=== PATIENT | female | born 1980 | race African-American/Black ===

== ENCOUNTER 2017-02-15 07:34 | Emergency (ER) | payer BC, MEDICAID, OTHER ==
[2017-02-15 08:23] LABS: ABSOLUTE BASOPHILS # (AUTO) 0.1 10^3/uL (0.0-0.2); ABSOLUTE EOSINOPHILS # (AUTO) 0.1 10^3/uL (0.0-0.6); ABSOLUTE LYMPHOCYTES (AUTO) 2.6 10^3/uL (0.5-4.7); ABSOLUTE MONOCYTES (AUTO) 0.7 10^3/uL (0.1-1.4); ABSOLUTE NEUT (AUTO) 4.7 10^3/uL (1.7-8.2); BASOPHILS % (AUTO) 1.3 % (0-2); EOSINOPHILS % (AUTO) 1.7 % (0-6); HEMATOCRIT 42.3 % (36.0-47.0); HEMOGLOBIN 14.3 g/dL (12.0-15.5); HGB HCT DIFFERENCE 0.6; LYMPHOCYTES % (AUTO) 31.7 % (13-45); MEAN CORPUSCULAR HEMOGLOBIN 29.4 pg (27.0-33.4); MEAN CORPUSCULAR HGB CONC 33.8 g/dL (32.0-36.0); MEAN CORPUSCULAR VOLUME 87 fl (80-97); MONOCYTES % (AUTO) 8.4 % (3-13); RED BLOOD COUNT 4.88 10^6/uL (3.72-5.28); SEGMENTED NEUTROPHILS % (AUTO) 56.9 % (42-78); WHITE BLOOD COUNT 8.3 10^3/uL (4.0-10.5)
[2017-02-15 08:33] LABS: APPEARANCE,URINE SLIGHTLY-CLOUDY; BILIRUBIN,URINE NEGATIVE (NEGATIVE); GLUCOSE, URINE NEGATIVE (NEGATIVE); KETONES,URINE NEGATIVE (NEGATIVE); LEUKOCYTE ESTERASE,URINE NEGATIVE (NEGATIVE); NITRITE,URINE NEGATIVE (NEGATIVE); PROTEIN,URINE NEGATIVE (NEGATIVE); URINE SPECIFIC GRAVITY 1.009; UROBILINOGEN,URINE NEGATIVE mg/dL (<2.0)
[2017-02-15 08:49] LABS: ALANINE AMINOTRANSFERASE 19 U/L (9-52); ALBUMIN 4.3 g/dL (3.5-5.0); ALKALINE PHOSPHATASE 54 U/L (38-126); ANION GAP 6 (5-19); ASPARTATE AMINO TRANSFERASE 26 U/L (14-36); BILIRUBIN,DIRECT 0.4 mg/dL (0.0-0.4); BILIRUBIN,TOTAL 0.6 mg/dL (0.2-1.3); BLOOD UREA NITROGEN 10 mg/dL (7-20); CALCIUM 9.2 mg/dL (8.4-10.2); CARBON DIOXIDE 28 mmol/L (22-30); CHLORIDE 106 mmol/L (98-107); CREATININE RESULT 0.81 mg/dL (0.52-1.25); GLUCOSE 89 mg/dL (75-110); LIPASE 73.2 U/L (23-300); POTASSIUM 3.8 mmol/L (3.6-5.0); SODIUM 140.2 mmol/L (137-145); TOTAL PROTEIN 7.6 g/dL (6.3-8.2)
[2017-02-15] MEDS ORDERED: MAG HYDROX/AL HYDROX/SIMETH SUSP 30 ML UDCUP PO ONE (08:50)
[2017-02-15] MEDS ORDERED: METOCLOPRAMIDE HCL ORAL SOLN 10 MG/10 ML UDCUP PO ONE (08:50)
[2017-02-15] MEDS ORDERED: LIDOCAINE 2% VISCOUS SOLN 20 ML UDCUP PO ONE (08:50)
[2017-02-15] MEDS ORDERED: FAMOTIDINE 20 MG TABLET PO ONE (09:58)
[2017-02-15] MEDS ORDERED: SUCRALFATE 1 GM TABLET PO ONE (09:58)
--- NOTE | 2017-02-15 10:00 | ER Document Report ---
ED General - General Chief Complaint: Sore Throat Stated Complaint: STOMACH PAIN Time Seen by Provider: 02/15/17 07:56 Mode of Arrival: Ambulatory Information source: Patient Notes: Patient is a 36-year-old female who presents to the ER today for abdominal pain in the middle of her abdomen radiating up into her throat since this morning. Patient has a history of acid reflux and takes omeprazole daily for it. She denies any fever, chills, nausea, vomiting, diarrhea, dysuria, cough or other symptoms. TRAVEL OUTSIDE OF THE [place] IN LAST 30 DAYS: No - Related Data Allergies/Adverse Reactions: No Known Allergies Allergy (Verified 02/15/17 07:45) Past Medical History - General Information source: Patient - Social History Smoking Status: Never Smoker Chew tobacco use (# tins/day): No Frequency of alcohol use: None Drug Abuse: None Family History: Reviewed & Not Pertinent Patient has suicidal ideation: No Patient has homicidal ideation: No - Past Medical History Cardiac Medical History: Denies: Hx Coronary Artery Disease, Hx Heart Attack, Hx Hypertension Pulmonary Medical History: Denies: Hx Asthma, Hx Bronchitis, Hx COPD, Hx Pneumonia Neurological Medical History: Denies: Hx Cerebrovascular Accident, Hx Seizures Renal/ Medical History: Reports: Hx Ovarian Cysts. Denies: Hx Peritoneal Dialysis GI Medical History: Reports: Hx Gastroesophageal Reflux Disease Musculoskeltal Medical History: Denies Hx Arthritis Past Surgical History: Reports: Hx Section. Denies: Hx Hysterectomy - Immunizations Hx Diphtheria, Pertussis, Tetanus Vaccination: Yes Review of Systems - Review of Systems Constitutional: No symptoms reported EENT: See HPI Cardiovascular: No symptoms reported Respiratory: No symptoms reported Gastrointestinal: See HPI Genitourinary: No symptoms reported Female Genitourinary: No symptoms reported Musculoskeletal: No symptoms reported Skin: No symptoms reported Hematologic/Lymphatic: No symptoms reported Neurological/Psychological: No symptoms reported Physical Exam - Vital signs Vitals: Temp Pulse Resp BP Pulse Ox 98.5 F 75 16 132/72 H 100 02/15/17 07:45 02/15/17 07:45 02/15/17 07:45 02/15/17 07:45 02/15/17 07:45 - Notes Notes: PHYSICAL EXAMINATION: GENERAL: Appears uncomfortable, but in no acute distress. HEAD: Atraumatic, normocephalic. EYES: Pupils equal round and reactive to light, extraocular movements intact, sclera anicteric, conjunctiva are normal. ENT: ear canals without erythema or foreign body, TMs pearly monte with good bony landmarks, nares patent, oropharynx clear without exudates. Moist mucous membranes. NECK: Normal range of motion, supple without lymphadenopathy LUNGS: CTAB and equal. No wheezes rales or rhonchi. HEART: Regular rate and rhythm without murmurs ABDOMEN: Soft, epigastric tenderness. No guarding, no rebound BACK: no vertebral tenderness, normal ROM GI/: no CVA tenderness EXTREMITIES: Normal range of motion, no pitting edema. No cyanosis. NEUROLOGICAL: Cranial nerves grossly intact. Normal sensory/motor exams. PSYCH: Normal mood, normal affect. SKIN: Warm, Dry, normal turgor, no rashes or lesions noted Course - Re-evaluation Re-evalutation: 02/15/17 10:25 Patient feels better after GI cocktail, lab work today is unremarkable including normal white blood cell count, urinalysis and negative test. - Vital Signs Vital signs: Temp Pulse Resp BP Pulse Ox 98.5 F 75 16 132/72 H 100 02/15/17 07:45 02/15/17 07:45 02/15/17 07:45 02/15/17 07:45 02/15/17 07:45 - Laboratory Result Diagrams: 02/15/17 08:10 02/15/17 08:10 Discharge - Discharge Clinical Impression: Abdominal pain Qualifiers: Abdominal location: epigastric Qualified Code(s): R10.13 - Epigastric pain Condition: Stable Disposition: HOME, SELF-CARE Additional Instructions: Return immediately for any new or worsening symptoms. Follow up with primary care provider, call tomorrow to make followup appointment. Prescriptions: Sucralfate [Carafate 1 gm Tablet] 1 gm PO ACHS #40 tablet Referrals: CHERRY BAUMANN MD [Primary Care Provider] - Follow up as needed
[2017-02-15 10:43] VITALS: BP 168/70
== END 2017-02-15 10:10 | disposition home or self-care (01) ==
LOC: ER 07:34
DX: J02.9 Acute pharyngitis, unspecified (principal); R10.13 Epigastric pain; K21.9 Gastro-esophageal reflux disease without esophagitis
CPT/HCPCS: 99282; 36415; 87070; 87880; 83690; 84703; 85025; 80053; 81001; J3490

== ENCOUNTER 2017-04-08 03:21 | Emergency (ER) | payer BC ==
[2017-04-08] MEDS ORDERED: ASPIRIN 81 MG TABLET, CHEWABLE PO ONE (04:18)
[2017-04-08] MEDS ORDERED: ONDANSETRON 4 MG TAB.RAPDIS PO ONE (04:19)
[2017-04-08] MEDS ORDERED: SUCRALFATE 1 GM TABLET PO ONE (04:19)
[2017-04-08] MEDS ORDERED: FAMOTIDINE 20 MG TABLET PO ONE (04:19)
--- NOTE | 2017-04-08 04:21 | ER Document Report ---
ED Cardiac - General Chief Complaint: Chest Pain Stated Complaint: CHEST PAIN Time Seen by Provider: 04/08/17 04:12 Notes: Patient is a 36-year-old female who comes emergency department for chief complaint of chest pain. She states pain started around 8 PM, she states that it has continued throughout the night, she cannot sleep, it is worse when lying flat, it does not radiate. She denies nausea/vomiting, difficulty breathing, shortness of breath, fever, cough, injury. Past medical history of IBS and GERD , takes omeprazole. She denies smoking, frequent alcohol use, she denies personal or family history of CA, blood clot. She denies recent travel, surgery , lower extremity swelling. TRAVEL OUTSIDE OF THE [place] IN LAST 30 DAYS: No - Related Data Allergies/Adverse Reactions: No Known Allergies Allergy (Verified 02/15/17 07:45) Past Medical History - General Information source: Patient - Social History Smoking Status: Never Smoker Frequency of alcohol use: None Drug Abuse: None Lives with: Family Family History: Reviewed & Not Pertinent Patient has suicidal ideation: No Patient has homicidal ideation: No - Past Medical History Cardiac Medical History: Denies: Hx Coronary Artery Disease, Hx Heart Attack, Hx Hypertension Pulmonary Medical History: Denies: Hx Asthma, Hx Bronchitis, Hx COPD, Hx Pneumonia Neurological Medical History: Denies: Hx Cerebrovascular Accident, Hx Seizures Renal/ Medical History: Reports: Hx Ovarian Cysts. Denies: Hx Peritoneal Dialysis GI Medical History: Reports: Hx Gastroesophageal Reflux Disease Musculoskeltal Medical History: Denies Hx Arthritis Past Surgical History: Reports: Hx Section. Denies: Hx Hysterectomy - Immunizations Hx Diphtheria, Pertussis, Tetanus Vaccination: Yes Review of Systems - Review of Systems Constitutional: No symptoms reported EENT: No symptoms reported Cardiovascular: See HPI Respiratory: No symptoms reported Gastrointestinal: See HPI Genitourinary: No symptoms reported Female Genitourinary: No symptoms reported Musculoskeletal: No symptoms reported Skin: No symptoms reported Hematologic/Lymphatic: No symptoms reported Neurological/Psychological: No symptoms reported Physical Exam - Vital signs Vitals: Temp Pulse Resp BP Pulse Ox 98.1 F 84 18 132/69 H 100 04/08/17 03:36 04/08/17 03:36 04/08/17 03:36 04/08/17 03:36 04/08/17 03:36 Interpretation: Normal - General General appearance: Appears well, Alert In distress: None - HEENT Head: Normocephalic, Atraumatic Eyes: Normal Pupils: PERRL - Respiratory Respiratory status: No respiratory distress Chest status: Nontender. No: Tender Breath sounds: Normal. No: Decreased air movement, Wheezing Chest palpation: Normal - Cardiovascular Rhythm: Regular. No: Tachycardia Heart sounds: Normal auscultation, S1 appreciated, S2 appreciated Murmur: No - Abdominal Inspection: Normal Distension: No distension Bowel sounds: Normal Tenderness: Nontender. No: Tender, Guarding Organomegaly: No organomegaly - Back Back: Normal, Nontender. No: Tender - Extremities General upper extremity: Normal inspection, Nontender, Normal color, Normal ROM , Normal temperature General lower extremity: Normal inspection, Nontender, Normal color, Normal ROM , Normal temperature, Normal weight bearing. No: Sujey's sign - Neurological Neuro grossly intact: Yes Cognition: Normal Orientation: AAOx4 Ck Coma Scale Eye Opening: Spontaneous Ck Coma Scale Verbal: Oriented [place] Coma Scale Motor: Obeys Commands [place] Coma Scale Total: 15 Speech: Normal Motor strength normal: LUE, RUE, LLE, RLE Sensory: Normal - Psychological Associated symptoms: Normal affect, Normal mood - Skin Skin Temperature: Warm Skin Moisture: Dry Skin Color: Normal Course - Re-evaluation Re-evalutation: EKG sinus rhythm with no T-wave inversions or ST segment changes in consecutive leads. No acute ischemic abnormality. Chest x-ray unremarkable. CBC, chemistry, hCG unremarkable. Troponin negative. Symptoms started over 8 hours ago. Heart score of 0. Patient was given aspirin initially, because of symptoms and history suspicious with GI source most likely patient was given Carafate, Pepcid, Zofran. On reevaluation patient symptoms completely resolved. She states she feels great. She is asking to leave. On review of previous records patient has been seen here several times with similar presentation and resolution. She has not had an endoscopy, H. pylori testing, or any additional workup in regards to her symptoms. Discussed this with patient, will provide her with written recommendation, she does see primary care she states she will go to them first for this. Discussed return precautions in detail, patient states understanding and agreement. - Vital Signs Vital signs: Temp Pulse Resp BP Pulse Ox 98.1 F 84 18 124/70 100 04/08/17 03:36 04/08/17 03:36 04/08/17 05:01 04/08/17 05:01 04/08/17 05:01 - Laboratory Result Diagrams: 04/08/17 04:28 04/08/17 04:28 Laboratory results interpreted by me: 04/08/17 04:28 Chloride 109 H Discharge - Discharge Clinical Impression: Chest pain Qualifiers: Chest pain type: unspecified Qualified Code(s): R07.9 - Chest pain, unspecified Condition: Stable Disposition: HOME, SELF-CARE Additional Instructions: Your workup today is normal. Your symptoms and response to treatment are consistent with a gastrointestinal source of your symptoms. Because you have been seen for this several times and your symptoms continue to occur please follow-up with your primary care provider for additional management including H. pylori testing and endoscopy. Take the Carafate as prescribed, take Rolaids or Tums [id number] if needed, take acetaminophen for pain, avoid NSAIDs, caffeine, spicy food. Return to the emergency department for any concerning worsening symptoms including vomiting, black stools, return or worsening pain, shortness of breath , fever, or any other concerning symptoms. Prescriptions: Sucralfate [Carafate 1 gm Tablet] 1 gm PO QID #40 tablet Referrals: JOSH NGO MD [Primary Care Provider] - Follow up as needed
[2017-04-08 04:47] LABS: ABSOLUTE BASOPHILS # (AUTO) 0.1 10^3/uL (0.0-0.2); ABSOLUTE EOSINOPHILS # (AUTO) 0.1 10^3/uL (0.0-0.6); ABSOLUTE LYMPHOCYTES (AUTO) 1.4 10^3/uL (0.5-4.7); ABSOLUTE MONOCYTES (AUTO) 0.7 10^3/uL (0.1-1.4); ABSOLUTE NEUT (AUTO) 5.5 10^3/uL (1.7-8.2); EOSINOPHILS % (AUTO) 1.8 % (0-6); HEMATOCRIT 42.7 % (36.0-47.0); HEMOGLOBIN 14.4 g/dL (12.0-15.5); HGB HCT DIFFERENCE 0.5; MEAN CORPUSCULAR HEMOGLOBIN 29.1 pg (27.0-33.4); MEAN CORPUSCULAR HGB CONC 33.8 g/dL (32.0-36.0); MEAN CORPUSCULAR VOLUME 86 fl (80-97); MONOCYTES % (AUTO) 9.1 % (3-13); RED BLOOD COUNT 4.95 10^6/uL (3.72-5.28); RED CELL DISTRIBUTION WIDTH 13.3 % (11.5-14.0); SEGMENTED NEUTROPHILS % (AUTO) 70.1 % (42-78); WHITE BLOOD COUNT 7.9 10^3/uL (4.0-10.5)
[2017-04-08 05:05] LABS: ALANINE AMINOTRANSFERASE 27 U/L (9-52); ALBUMIN 4.1 g/dL (3.5-5.0); ALKALINE PHOSPHATASE 53 U/L (38-126); ANION GAP 9 (5-19); ASPARTATE AMINO TRANSFERASE 14 U/L (14-36); BILIRUBIN,DIRECT 0.2 mg/dL (0.0-0.4); BILIRUBIN,TOTAL 0.4 mg/dL (0.2-1.3); BLOOD UREA NITROGEN 12 mg/dL (7-20); CALCIUM 9.5 mg/dL (8.4-10.2); CARBON DIOXIDE 25 mmol/L (22-30); CHLORIDE 109 mmol/L (98-107); CREATINE KINASE 86 U/L (30-135); CREATININE RESULT 0.83 mg/dL (0.52-1.25); GLUCOSE 100 mg/dL (75-110); POTASSIUM 4.1 mmol/L (3.6-5.0); SODIUM 142.5 mmol/L (137-145); TOTAL PROTEIN 7.1 g/dL (6.3-8.2)
[2017-04-08 05:17] LABS: CREATINE KINASE MB 0.38 ng/mL (<4.55); TROPONIN I < 0.012 ng/mL
--- NOTE | 2017-04-08 05:39 | RADIOLOGY REPORT (SQ) ---
EXAM DESCRIPTION: CHEST SINGLE VIEW CLINICAL HISTORY: 36 years, Female, chest pain COMPARISON: None. NUMBER OF VIEWS: 1 TECHNIQUE: Routine portable AP chest radiograph protocol. LIMITATIONS: None. FINDINGS: Cardiac size and pulmonary vasculature are normal. Lungs are clear. No pleural effusions or pneumothorax on this single view. Bones appear intact on this single view. No free peritoneal gas. IMPRESSION: 1. Normal portable AP chest radiograph. 2010 [facility] [employer]- All Rights Reserved
[2017-04-08 05:48] VITALS: BP 124/70
--- NOTE | 2017-04-08 11:18 | EKG REPORT ---
SEVERITY:- NORMAL ECG - SINUS RHYTHM : Confirmed by: Lana Heredia MD 08-Apr-2017 11:17:10
== END 2017-04-08 05:47 | disposition home or self-care (01) ==
LOC: ER 03:21
DX: R07.9 Chest pain, unspecified (principal)
CPT/HCPCS: 93005; 99285; 36415; 82553; 82550; 84703; 85025; 80053; 84484; 71010; 93010; S0119

== ENCOUNTER 2017-04-10 18:12 | Emergency (ER) | payer BC ==
[2017-04-10 19:40] LABS: ABSOLUTE LYMPHOCYTES (AUTO) 2.4 10^3/uL (0.5-4.7); ABSOLUTE NEUT (AUTO) 7.1 10^3/uL (1.7-8.2); BASOPHILS % (AUTO) 0.4 % (0-2); EOSINOPHILS % (AUTO) 0.3 % (0-6); HEMATOCRIT 42.3 % (36.0-47.0); HEMOGLOBIN 14.5 g/dL (12.0-15.5); HGB HCT DIFFERENCE 1.2; LYMPHOCYTES % (AUTO) 22.7 % (13-45); MEAN CORPUSCULAR HEMOGLOBIN 29.5 pg (27.0-33.4); MEAN CORPUSCULAR HGB CONC 34.3 g/dL (32.0-36.0); MEAN CORPUSCULAR VOLUME 86 fl (80-97); MONOCYTES % (AUTO) 9.7 % (3-13); RED BLOOD COUNT 4.91 10^6/uL (3.72-5.28); RED CELL DISTRIBUTION WIDTH 13.5 % (11.5-14.0); SEGMENTED NEUTROPHILS % (AUTO) 66.9 % (42-78); WHITE BLOOD COUNT 10.7 10^3/uL (4.0-10.5)
[2017-04-10 19:43] LABS: AMORPHOUS SEDIMENT,URINE TRACE /HPF; APPEARANCE,URINE CLOUDY; BILIRUBIN,URINE NEGATIVE (NEGATIVE); GLUCOSE, URINE NEGATIVE (NEGATIVE); KETONES,URINE NEGATIVE (NEGATIVE); LEUKOCYTE ESTERASE,URINE NEGATIVE (NEGATIVE); NITRITE,URINE NEGATIVE (NEGATIVE); PROTEIN,URINE NEGATIVE (NEGATIVE); URINE SPECIFIC GRAVITY 1.013; UROBILINOGEN,URINE NEGATIVE mg/dL (<2.0)
[2017-04-10 19:49] LABS: URINE BARBITURATES SCREEN NEGATIVE; URINE METHADONE SCREEN NEGATIVE; URINE OPIATES LOW NEGATIVE; URINE PHENCYCLIDINE SCREEN NEGATIVE
[2017-04-10 19:51] LABS: ALANINE AMINOTRANSFERASE 24 U/L (9-52); ALBUMIN 4.3 g/dL (3.5-5.0); ALCOHOL < 10 mg/dL (NONE DETECTED); ALKALINE PHOSPHATASE 49 U/L (38-126); ANION GAP 12 (5-19); ASPARTATE AMINO TRANSFERASE 20 U/L (14-36); BILIRUBIN,DIRECT 0.4 mg/dL (0.0-0.4); BILIRUBIN,TOTAL 0.6 mg/dL (0.2-1.3); BLOOD UREA NITROGEN 7 mg/dL (7-20); CARBON DIOXIDE 25 mmol/L (22-30); CHLORIDE 107 mmol/L (98-107); CREATININE RESULT 0.81 mg/dL (0.52-1.25); GLUCOSE 98 mg/dL (75-110); LIPASE 51.1 U/L (23-300); POTASSIUM 4.1 mmol/L (3.6-5.0); SODIUM 144.2 mmol/L (137-145); TOTAL PROTEIN 7.4 g/dL (6.3-8.2)
--- NOTE | 2017-04-10 20:17 | RADIOLOGY REPORT (SQ) ---
EXAM DESCRIPTION: CHEST PA/LAT COMPLETED DATE/TIME: 04/10/2017 7:56 pm REASON FOR STUDY: Altered mental status COMPARISON: 2014 TECHNIQUE: Frontal and lateral radiographic views of the chest acquired. NUMBER OF VIEWS: Two view. LIMITATIONS: None. FINDINGS: LUNGS AND PLEURA: No opacities, masses or pneumothorax. No pleural effusion. MEDIASTINUM AND HILAR STRUCTURES: No masses or contour abnormalities. HEART AND VASCULAR STRUCTURES: Heart normal size. No evidence for failure. BONES: No acute findings. HARDWARE: None in the chest. OTHER: No other significant finding. IMPRESSION: NO SIGNIFICANT RADIOGRAPHIC FINDING IN THE CHEST. TECHNICAL DOCUMENTATION: JOB ID: [id number] 2012 [employer]- All Rights Reserved
--- NOTE | 2017-04-10 20:40 | ER Document Report ---
ED General - General Chief Complaint: Aphasia Stated Complaint: CONFUSION,NOT ACTING "NORMAL" Time Seen by Provider: 04/10/17 18:54 Notes: Patient had some unusual activity and behavior today. In her room with her today, is her son and her aunt. She drove her car about 3 blocks from home to go to the store to buy local bread around 11:00 today. Her car was found sitting in the middle of the street , and the patient through her keys away. Her son called her and they were eventually able to find her and take her to another relative's house where she went to sleep. Says she has not had any sleep for couple of days. Patient's aunt says that patient has been very stressed of late. 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 Patient was seen in this emergency department just a couple of days ago for chest pains and her workup was completely normal. TRAVEL OUTSIDE OF THE [place] IN LAST 30 DAYS: No - Related Data Allergies/Adverse Reactions: No Known Allergies Allergy (Verified 02/15/17 07:45) Past Medical History - Social History Smoking Status: Unknown if Ever Smoked Family History: Reviewed & Not Pertinent Renal/ Medical History: Reports: Hx Ovarian Cysts GI Medical History: Reports: Hx Gastroesophageal Reflux Disease Psychiatric Medical History: Reports: None Denies: Hx Bipolar Disorder Past Surgical History: Reports: Hx Section - Immunizations Hx Diphtheria, Pertussis, Tetanus Vaccination: Yes Review of Systems - Review of Systems Notes: REVIEW OF SYSTEMS: Patient does not answer half of the questions I ask her. She just ignores me and stares straight ahead with her arms crossed.. At other times with other question she will shake her head slightly. She asked similarly with her aunt, but does talk or interact more with her aunt who is in the room. CONSTITUTIONAL : Denies fever. CARDIOVASCULAR: Denies chest pain at this time, although she was seen here 2 days ago for chest pains. RESPIRATORY: Denies cough, chest congestion, or shortness of breath. GASTROINTESTINAL: Denies abdominal pain or nausea, vomiting, or diarrhea. MUSCULOSKELETAL: Denies back or neck pain. Denies joint pain or swelling. NEUROLOGICAL: Denies LOC or altered mental status. ALL OTHER SYSTEMS REVIEWED AND NEGATIVE. Physical Exam - Vital signs Vitals: Pulse Resp BP Pulse Ox 83 18 136/86 H 98 04/10/17 20:49 04/10/17 20:49 04/10/17 20:49 04/10/17 20:49 Interpretation: Normal - Notes Notes: PHYSICAL EXAMINATION: GENERAL: Well-appearing, in no acute distress. See previous description of patient's behavior. Basically she sits staring straight ahead with her arms crossed and only answers half the questions I put to her. She does not answer verbally, but just shakes her head yes or no. HEAD: Atraumatic, normocephalic. EYES: Pupils equal round and reactive to light, extraocular movements intact. ENT: oropharynx clear without exudates. Moist mucous membranes. NECK: Normal range of motion, supple. LUNGS: Breath sounds clear and equal bilaterally. HEART: Regular rate and rhythm without murmurs. ABDOMEN: Soft, nontender. No guarding or rebound. BACK: No tenderness throughout entire back. EXTREMITIES: Normal range of motion without pain. NEUROLOGICAL: Normal gait. Normal sensory, motor, and reflex exams. Awake, alert, and but I am able to assess fully because of her lack of cooperation. SKIN: Warm, dry, no rashes. Course - Re-evaluation Re-evalutation: 04/11/17 00:03 After I had finished my examination of the patient, it is very obvious to me that the patient does not have any neurologic deficits. I am not sure what the reason for the patient's behavior, but this is all voluntary actions and patient is not disoriented and does not in any way seem to be psychotic. I do not think she is bipolar. I think she simply acting out her anxiety. As the patient was being shown to the restroom to give us a urine specimen, I had the nurse and the patient come into a room where I could speak without anyone hearing and I told the patient that I knew that what she was doing was all entirely voluntary and she has complete control over how she behaves and what she is saying and what she is doing. I then told her that if she persists in this behavior, I would have her committed and have her evaluated in the morning by mental health and see that she is sent to a mental hospital. I advised her that if she does not want to end up being committed to a mental institution in the morning that she needs to stop this behavior and act normally and interacts normally with me as well as her family. The next time I came in the room, patient was sitting on her bed talking with her family and acting normally. - Vital Signs Vital signs: Temp Pulse Resp BP Pulse Ox 83 18 136/86 H 98 04/10/17 20:49 04/10/17 20:49 04/10/17 20:49 04/10/17 20:49 - Laboratory Result Diagrams: 04/10/17 18:43 04/10/17 18:43 Laboratory results interpreted by me: 04/10/17 04/10/17 18:43 19:00 WBC 10.7 H Urine Ascorbic Acid 20 H Discharge - Discharge Clinical Impression: Anxiety, Stress Condition: Stable Disposition: HOME, SELF-CARE Additional Instructions: Anxiety The physician feels that some of your health problems are being caused by anxiety. Anxiety affects your health in many ways. Anxiety alone can cause palpitations, sweats, chest pains, abdominal pains, shortness of breath, and headaches. It contributes to ulcer disease, high blood pressure, irritable bowel syndrome, and has been shown to cause flare-ups of many other diseases. Anxiety is not a simple disorder to treat. If the anxiety is due to recent life stresses, you may simply need time to "work through" the changes. If the anxiety is due to an underlying unhappiness with yourself or due to psychiatric disturbance, professional help will be needed. Your physician can refer you for further help if needed. Anti-anxiety medication is occasionally given if the stress is acute or if you are having trouble sleeping. Chronic or frequent use of these medications is not a good idea because the body becomes reliant on it, preventing you from dealing with life's normal stresses. NORMAL EXAM AND WORKUP: At this time, your examination and workup show no significant abnormality. No significant abnormal physical findings were noted. All laboratory, EKG, and imaging (x-ray, CT scans, ultrasound) studies that were ordered show no significant abnormality. Although your examination and all studies that were ordered showed no significant abnormal finding, there are no examinations and no studies that are 100% accurate. There is always the possibility that some abnormality could exist and not be detected with physical examination or within the limits and capabilities of laboratory and other studies. You should return or follow up as you were instructed on your visit today for further evaluation if your symptoms do not resolve. Benzodiazepines You have been given a benzodiazepine medication. Examples of this type of medicine include Valium, Xanax, Librium, Ativan, and Halcion. Benzodiazepines have many uses. Medications of this type are used for insomnia, anxiety, muscle spasms, seizures, and drug and alcohol withdrawal. You may become very drowsy when you first take the medication. You should not drive or operate machinery while under its effects. Do not combine the medication with alcohol, or with any other medication without talking to your doctor. Do not take if without specific instruction from your electronics worker. Some benzodiazepines may have harmful interactions with oral antifungal medicines such as ketoconazole, itraconazole, and nefazodone. If you are taking an antifungal medicine, discuss this with your doctor before taking benzodiazepines. FOLLOW-UP CARE: If you have been referred to a physician for follow-up care, call the physician s office for an appointment as you were instructed or within the next two days. If you experience worsening or a significant change in your symptoms, notify the physician immediately or return to the Emergency Department at any time for re-evaluation. Prescriptions: Lorazepam [Ativan 1 mg Tablet] 1 mg PO Q4HP PRN #12 tab PRN Reason: Forms: Return to Work Referrals: JOSH NGO MD [Primary Care Provider] - Follow up as needed
[2017-04-10 20:50] VITALS: BP 136/86
== END 2017-04-10 20:49 | disposition home or self-care (01) ==
LOC: ER 18:12
DX: F41.9 Anxiety disorder, unspecified (principal); F43.0 Acute stress reaction
CPT/HCPCS: 36415; 71020; 80053; 80307; 81001; 83690; 84703; 85025; 99285